=== PATIENT | female | born 1940 ===

== ENCOUNTER 2021-05-23 06:00 | Day surgery (SDC) | payer OTHER ==
[~2021-05-23 06:00] MED LIST: GLUMETZA500 MG PO; SYNTHROID50 MCG PO; SYNTHROID75 MCG PO; ZETIA10 MG PO
[2021-05-23] MEDS ORDERED: IBU600 MG PO (09:37)
== END 2021-05-23 14:00 | disposition home or self-care (01) ==
LOC: CIR.AMB 06:00
PROVIDERS: ATTEND Obstetrics & Gynecology Gynecology
DX: N81.10 Cystocele, unspecified (principal); E78.00 Pure hypercholesterolemia, unspecified; E11.9 Type 2 diabetes mellitus without complications; Z79.84 Long term (current) use of oral hypoglycemic drugs; E03.9 Hypothyroidism, unspecified